=== PATIENT | female | born 1980 | race Caucasian/White ===

== ENCOUNTER 2016-10-05 22:24 | Emergency (ER) | payer OTHER ==
[2016-10-06 00:41] VITALS: BP 132/83
== END 2016-10-06 00:41 | disposition left against medical advice (07) ==
LOC: ED 22:24
DX: Z53.21 Procedure and treatment not carried out due to patient leaving prior to being seen by health care provider (principal)

== ENCOUNTER 2017-08-08 08:10 | Emergency (ER) | payer OTHER ==
[~2017-08-08] VITALS: Ht 162.6 cm; Wt 81.6 kg
[2017-08-08 10:15] VITALS: BP 128/86
== END 2017-08-08 10:03 | disposition home or self-care (01) ==
LOC: ED 08:10
DX: N39.0 Urinary tract infection, site not specified (principal)

== ENCOUNTER 2019-01-12 14:40 | Emergency (ER) | payer SELFPAY ==
[~2019-01-12] VITALS: Ht 162.6 cm; Wt 86.2 kg
[2019-01-12 14:43] VITALS: Ht 162.6 cm; Wt 86.2 kg
[2019-01-12 16:22] VITALS: BP 132/98
== END 2019-01-12 16:22 | disposition home or self-care (01) ==
LOC: ED 14:40
DX: K12.0 Recurrent oral aphthae (principal)